=== PATIENT | male | born 2000 | race Hispanic/Latino ===

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

== ENCOUNTER 2021-08-20 10:45 | Outpatient (CLI) | payer OTHER ==
[2021-08-20 11:23] LABS: PLATELET COUNT 236 K/uL (142-355)
[2021-08-20 11:43] LABS: POTASSIUM 4.2 mmol/L (3.6-5.2)
== END 2021-08-20 20:47 | disposition home or self-care (01) ==
LOC: LABW 10:45
PROVIDERS: ATTEND Physician Assistant
DX: R53.81 Other malaise (principal); R63.4 Abnormal weight loss; Z12.5 Encounter for screening for malignant neoplasm of prostate; F31.9 Bipolar disorder, unspecified; Z79.899 Other long term (current) drug therapy; Z00.00 Encounter for general adult medical examination without abnormal findings
CPT/HCPCS: 36415; 80053; 80061; 82306; 82378; 82607; 83036; 84153; 84403; 84439; 84443; 84481; 85027; 85652; 86038; 86140; 86304; 86316; 86430

== ENCOUNTER 2022-04-20 11:46 | Outpatient (CLI) | payer OTHER ==
[2022-04-20 12:12] LABS: PLATELET COUNT 273 K/uL (142-355)
[2022-04-20 12:22] LABS: POTASSIUM 4.5 mmol/L (3.6-5.2)
== END 2022-04-20 19:34 | disposition home or self-care (01) ==
LOC: LABW 11:46
PROVIDERS: ATTEND Nurse Practitioner
DX: R10.2 Pelvic and perineal pain (principal)
CPT/HCPCS: 36415; 80053; 82150; 83690; 85027; 85652; 86038; 86140

== ENCOUNTER 2022-04-21 08:44 | Outpatient (CLI) | payer OTHER | END 2022-04-21 18:58 | disposition home or self-care (01) | LOC: US 08:44 | PROVIDERS: ATTEND Nurse Practitioner | DX: R10.2 Pelvic and perineal pain (principal) ==

== ENCOUNTER 2022-10-07 11:31 | Outpatient (CLI) | payer OTHER | END 2022-10-07 19:12 | disposition home or self-care (01) | LOC: LABW 11:31 | PROVIDERS: ATTEND Physician Assistant | DX: Z76.89 Persons encountering health services in other specified circumstances (principal); W46.1XXA Contact with contaminated hypodermic needle, initial encounter | CPT/HCPCS: 36415; 86706; 86735; 86762; 86765; 86787 ==